=== PATIENT | female | born 1960 | race Asian ===

== ENCOUNTER 2018-10-31 12:14 | Emergency (ER) | payer SELFPAY ==
[~2018-10-31] VITALS: Ht 156 cm; Wt 66.0 kg
[2018-10-31 13:24] LABS: STREP SCREEN NEGATIVE
[2018-10-31] MEDS ORDERED: CEPHALEXIN500 M1 PO (13:29)
[2018-10-31 13:57] VITALS: BP 139/79; PULSE 89; TEMP 98.9
== END 2018-10-31 13:58 | disposition home or self-care (01) ==
LOC: COL.ER 12:14
PROVIDERS: Physician Assistant
DX: J02.9 Acute pharyngitis, unspecified (principal)